=== PATIENT | female | born 1975 | race Hispanic/Latino ===

== ENCOUNTER → 2017-05-05 | Outpatient (CLI) | payer OTHER | LOC: LAB.O 18:01 | PROVIDERS: ATTEND Internal Medicine | DX: Z01.89 Encounter for other specified special examinations (principal); W46.1XXA Contact with contaminated hypodermic needle, initial encounter ==

== ENCOUNTER → 2017-06-06 | Outpatient (CLI) | payer OTHER ==
--- NOTE | 2017-06-06 13:20 | RAD ---
EXAM DESCRIPTION: Chest,2 Views CLINICAL HISTORY: 41 years, Female, pain COMPARISON: October 21, 2011 FINDINGS: Adequate inspiration. Some linear scarring lower lung zones. No consolidation. Cardiac silhouette normal. IMPRESSION: Mild chronic lung change with normal heart size Electronically signed by: Santiago Slade MD 06/06/2017 1:19 PM CDT
== END | disposition home or self-care (01) ==
LOC: RAD 09:22
PROVIDERS: ATTEND Internal Medicine Nephrology
DX: Z11.1 Encounter for screening for respiratory tuberculosis (principal)